=== PATIENT | male | born 1975 | race Caucasian/White ===

== ENCOUNTER 2023-03-18 16:31 | Emergency (ER) | payer MEDICARE, SELFPAY ==
[2023-03-18] VITALS (7 sets, daily range): BP systolic 108–128; BP diastolic 70–81; BMI 28.8
--- NOTE | 2023-03-18 18:13 | ED.CVA ---
History of Present Illness
General
Chief Complaint: CVA/TIA Symptoms
Source: patient
Exam Limitations: none
Time Seen by Provider: 03/18/23 18:04
Nursing documentation reviewed up to this point in time: agreed with
Onset of Stroke Symptoms
Onset of symptoms known: Yes
Date of onset of symptoms: 03/13/23
Travel History
Have you had any contact with someone who has COVID-19?: No
Do you have any symptoms of coronavirus? Fever > 100 degrees, chills, cough, shortness of breath, sore throat, loss of taste or smell, muscle aches, or headache?: No
History of Present Illness
History of Present Illness:
47-year-old male presents emergency department due to difficulty speaking for several days, blurred vision. He uses medical marijuana and is not sure if his symptoms are related to the marijuana. He also has chronic bilateral hip pain for which
she is getting hip replacements in April by Dr. Feliciano.
Past History
Past History
ED Past Medical History: Arrthythmia, HTN and Other (Bilateral hip pain/arthritis)
ED Past Surgical History: Urological (Cystoureteroscopy) and Other (Pulmonary vein ablation)
Social History
Tobacco: Non-smoker
Alcohol: None
Drug: Marijuana
Review of Systems
Review of Systems
Allergies reviewed?: Yes
All Other Systems: Not applicable
Constitutional: Reports no symptoms; Denies fever
EENT: Reports no symptoms
Respiratory: Reports no symptoms
Cardiac: Reports no symptoms
ABD/GI: Reports no symptoms
: Reports no symptoms
Musculoskeletal: Reports joint pain (Bilateral hip pain)
Skin: Reports no symptoms
Neurological: Reports other (Difficulty walking, dysphagia)
Endocrine: Reports no symptoms
Hematologic/Lymphatic: Reports no symptoms
Psychiatric: Reports no symptoms
Phy Exam
Physical Exam
Physical Exam:
Physical Exam
General: no apparent distress, not acutely ill
Neck: supple. no meningeal signs. normal posterior pharynx
Heart: s1/s2 regular rate and rhythm, no murmur. equal radial
pulses.
HEENT: Pupils equal round reactive to light, EOMI
Lungs: no acute respiratory distress. clear bilaterally
Abdomen: normal bowel sounds. not tender. no CVAT
Neuro: alert and oriented. no focal neurological deficits cranial nerves II through XII intact
Skin: no rash
Psychiatric: well kept. interactive and cooperative
Extremities: no edema. no calf tenderness. negative homans. good distal pulses
Course
Orders/Labs/Results
Orders:
Orders
03/18/23 18:12
Electrocardiogram (*1) Stat
Reason for Study: Other
Other Reason for Exam: neuro symptoms
CT Head W/o Iv Contrast Urgent
Comment:
Reason For Exam: blurred vision, dysphasia
Cardiac Monitoring- Treatment ONCE
EKG- Treatment ONCE
IV Insert/Care/Rem.- Treatment PRN
Pulse Ox/cont/shift [RESP] Stat
Quantity: 1
03/18/23 18:51
Complete Blood Count/With Diff Urgent
Comprehensive Metabolic Panel Urgent
Troponin I Urgent
Abnormal Lab Results
03/18/23
18:51
RBC 4.26 L 10^6/uL
(4.70-6.10)
Hgb 11.6 L g/dL
(13.0-18.0)
Hct 33.9 L %
(39.0-52.0)
MCV 79.6 L fL
(80.0-94.0)
Abs Immat Gran (auto) 0.2 H 10^3/uL
(0-0.05)
Absolute Monos (auto) 0.7 H 10^3/uL
(0.1-0.6)
Immature Gran % 1.7 H %
(0-0.5)
BUN 25 H mg/dl
(9-20)
Total Protein 6.0 L g/dl
(6.3-8.2)
Albumin 3.2 L g/dl
(3.5-5.0)
03/18/23 18:51
03/18/23 18:51
Vital Signs
Initial and Last Documented VS:
Initial Vital Signs
Temp Pulse Resp BP Pulse Ox
97.8 F 76 20 128/78 98
03/18/23 16:36 03/18/23 16:36 03/18/23 16:36 03/18/23 16:36 03/18/23 16:36
Last Documented Vital Signs
Temp Pulse Resp BP Pulse Ox
97.8 F 57 16 116/79 95
03/18/23 16:36 03/18/23 22:15 03/18/23 18:15 03/18/23 23:01 03/18/23 22:15
MDM/Problems Addressed
Differential Diagnosis Includes:
CVA, marijuana intoxication
MDM/Problems Addressed:
39-year-old male with confusion, unclear etiology. No neurologic deficits on exam. Does not appear to be a CVA. Normal CT head, labs, neurologic exam. Stable for discharge. Bilateral hip pain due to arthritis. He will get a bilateral hip in
April.
Chronic conditions affecting care: HTN and Arrhythmia
Acute Exacerbation and/or Progression of Chronic Illness: HTN
*Radiology
Radiology exam reviewed: radiology read reviewed (CT head no acute findings)
*Pulse Oximetry
Patient hypoxic: no
*EKG
Interpreted by ED Provider?: Yes
EKG Intrepretation Date: 03/18/23
EKG Intrepretation Time: 18:37
Interpretation: normal
Comparison EKG: no comparison EKG present
Heart Rate: 60
Rate: normal
Rhythm: sinus
[place]: normal axis
Interval: normal interval
QRS Pattern: normal QRS
Ischemia: no ischemia
*[employer] Interpretation
Rate: normal
Interpretation: normal
Heart Rate: 62
Rhythm: sinus
*Critical Care Note
Total Time (30-74mins, 75-104mins- exclusive of procedures): Not Applicable
Patient Management
Social determinants of health affecting care: Living situation, Substance abuse (Marijuana use) and Strong social support
Escalation/DeEscalation of care consider admission/obs:
Admit not indicated
ED Attending Note
-
Portions of this chart may have been created with voice recognition software.� Occasional wrong word or��sound alike� substitutions may have occurred due to the inherent limitations of voice recognition software.
Discharge Plan
Departure
Patient Disposition: Home (Routine Discharge)
Date of Disposition: 03/18/23
Time of Disposition: 22:32
Patient with high blood pressure during this ER visit?: No
Condition: Good
Discharge Problem:
Acute confusion
Instructions: Delirium (Confusion) (DC)
Referrals:
Travon Easton MD [Family Provider] - Call in 1-3 days for appt
Interventions
Interventions:
*Risk Screen - Suicide Last Done: 03/18/23 16:53
*General Assessment Last Done: 03/18/23 16:53
*Neglect/Abuse Screening Last Done: 03/18/23 16:53
ED- Fall Risk Assessment Last Done: 03/18/23 16:53
*ED COVID-19 Vaccine History Last Done: 03/18/23 16:53
*Nursing Disposition Last Done: 03/18/23 23:01
ED- Pulmonary Assessment Last Done: 03/18/23 16:53
ED- Neurological Assessment Last Done: 03/18/23 16:53
ED- Cardiac Assessment Last Done: 03/18/23 16:53
Discharge Date and Time
Discharge Date/Time: 03/18/23 23:02
[2023-03-18 19:00] LABS: % Basophils 0.8 % (0-2); % Eosinophils 1.9 % (0-6); % Immature Granulocytes 1.7 % (0-0.5); % Lymphocytes 23.9 % (20.5-51.1); % Neutrophils 63.7 % (42.2-75.2); Absolute Basophils 0.1 10^3/uL (0-0.2); Absolute Eosinophils 0.2 10^3/uL (0-0.7); Absolute Immature Granulocytes 0.2 10^3/uL (0-0.05); Absolute Lymphocytes 2.1 10^3/uL (1.2-3.4); Absolute Monocytes 0.7 10^3/uL (0.1-0.6); Absolute Neutrophils 5.6 10^3/uL (1.4-6.5); Hematocrit 33.9 % (39.0-52.0); Hemoglobin 11.6 g/dL (13.0-18.0); Mean Corp Hgb Conc. 34.2 g/dL (33.0-37.0); Mean Corpuscular Hgb 27.2 pg (27.0-31.0); Mean Corpuscular Volume 79.6 fL (80.0-94.0); Mean Platelet Volume 9.2 fL (7.4-10.4); Nucleated Red Blood Cells % 0 % (-); Platelet Count 306 10^3/uL (130-400); Red Blood Cell Count 4.26 10^6/uL (4.70-6.10); Red Cell Dist. Width 13.2 % (11.5-14.5); White Blood Cell Count 8.7 10^3/uL (4.8-10.8)
[2023-03-18 19:15] LABS: ALT (SGPT) 12 U/L (0-50); AST (SGOT) 18 U/L (17-59); Albumin 3.2 g/dl (3.5-5.0); Alkaline Phosphatase 98 U/L (38-126); Blood Urea Nitrogen 25 mg/dl (9-20); Carbon Dioxide 27 mmol/L (22-30); Chloride 100 mmol/L (98-107); Estimated Creatinine Clearance 90 ml/min; Glucose 92 mg/dl (70-99); Potassium 4.2 mmol/L (3.5-5.1); Sodium 136 mmol/L (135-145); Total Bilirubin 0.5 mg/dl (0.2-1.3); eGFR > 60.00
[2023-03-18 19:23] LABS: Troponin I < 0.012 ng/ml
== END 2023-03-18 23:02 | disposition home or self-care (01) ==
LOC: EMR 16:31
PROVIDERS: EMERGENCY PHYSICIAN Emergency Medicine; FAMILY PHYSICIAN Internal Medicine
DX: R41.0 Disorientation, unspecified (principal); F12.90 Cannabis use, unspecified, uncomplicated; I10 Essential (primary) hypertension
CPT/HCPCS: 99284; 70450; 80053; 84484; 85025; 93005